=== PATIENT | female | born 1935 | race Caucasian/White ===

== ENCOUNTER 2016-11-30 18:16 | Emergency (ER) | payer OTHER ==
[~2016-11-30] VITALS: Ht 165.1 cm; Wt 90.7 kg
[2016-11-30 20:03] VITALS: BP 136/88; PULSE 64; RESP 17; TEMP 97.7; O2SAT 98
[2016-11-30] MEDS ORDERED: BIMA2.5D6 OP (20:09)
[2016-11-30] MEDS ORDERED: LIP10 PO (20:09)
--- NOTE | 2016-11-30 21:20 | NUR ---
Pt states that she woke up with her L foot being swollen since this morning. Reports tightness and numbness. Denies trauma to L foot. Will continue to monitor. No other injuries or complaints mentioned/noted. No distress noted.
--- NOTE | 2016-11-30 21:20 | NUR ---
Placed in room 08 . Placed on blade operator, blood pressure machine and pulse oximeter. To gown for exam. Side rails up. Report given to TYSON Jovel.
--- NOTE | 2016-11-30 21:20 | NUR ---
ER Dr. Miller at bedside examining patient.
[2016-11-30 21:49] LABS: BASOPHILS # (AUTO) 0.1 K/uL (0.0-0.2); BASOPHILS % (AUTO) 0.9 % (0.0-2.0); EOSINOPHILS # (AUTO) 0.4 K/uL (0.0-0.4); EOSINOPHILS % (AUTO) 4.6 % (0.0-4.0); HEMATOCRIT 40.7 % (36-48); HEMOGLOBIN 13.7 g/dL (12.0-16.0); LYMPHOCYTES # (AUTO) 2.2 K/uL (1.0-5.5); LYMPHOCYTES % (AUTO) 25.2 % (20.5-51.5); MEAN CORPUSCULAR HEMOGLOBIN 29 pg (27-31); MEAN CORPUSCULAR HGB CONC 34 % (32-36); MEAN CORPUSCULAR VOLUME 87 fL (79.0-98.0); MONOCYTES # (AUTO) 0.6 K/uL (0.0-1.0); MONOCYTES % (AUTO) 7.1 % (1.7-9.3); NEUTROPHILS # (AUTO) 5.4 K/uL (1.8-7.7); NEUTROPHILS % (AUTO) 62.2 % (40.0-70.0); PLATELET COUNT (AUTO) 196 K/uL (130-430); RED CELL DISTRIBUTION WIDTH 13.2 % (9.0-15.0); WHITE BLOOD COUNT (AUTO) 8.7 K/uL (4.8-10.8)
[2016-11-30 21:58] LABS: ANION GAP 4 (5-15); CALCIUM 8.7 mg/dL (8.4-11.0); CHLORIDE 106 mmol/L (98-107); CREATININE 0.84 mg/dL (0.55-1.30); GLUCOSE 101 mg/dL (70-99); POTASSIUM 3.7 mmol/L (3.5-5.1); SODIUM SERUM 139 mmol/L (136-145); UREA NITROGEN, BLOOD 14 mg/dL (8-21)
[2016-11-30 22:02] LABS: ALANINE AMINOTRANSFERASE 24 U/L (12-78); ALBUMIN 3.6 g/dL (3.4-4.8); ASPARTATE AMINOTRANSFERASE 14 U/L (10-37); TOTAL BILIRUBIN 0.6 mg/dL (0.0-1.0); TOTAL PROTEIN, SERUM 7.1 g/dL (6.4-8.3)
[2016-11-30 22:19] LABS: PROTHROMBIN TIME 10.6 SECS (9.5-12.5)
[2016-12-01 00:06] VITALS: BP 133/87; PULSE 62; RESP 17; TEMP 97.7; O2SAT 98
--- NOTE | 2016-12-01 00:06 | NUR ---
Patient given written and verbal discharge instructions and verbalizes understanding. ER MD discussed with patient the results and treatment provided. Patient in stable condition. ID arm band removed. Patient educated on pain management and to follow up with PMD. Pain Scale 0/10. Opportunity for questions provided and answered.
== END 2016-12-01 00:06 | disposition home or self-care (01) ==
LOC: SED 18:16
DX: M96.89 Other intraoperative and postprocedural complications and disorders of the musculoskeletal system (principal); M25.372 Other instability, left ankle; R60.9 Edema, unspecified; Z88.5 Allergy status to narcotic agent
CPT/HCPCS: 36415; 80053; 85025; 85610-TC; 85730-TC; 93971; 99285

== ENCOUNTER 2019-02-06 14:23 | Emergency (ER) | payer OTHER ==
[~2019-02-06] VITALS: Ht 165.1 cm; Wt 83.9 kg
[~2019-02-06 14:23] MED LIST: BIMA2.5D6 OP; LIP10 PO
[2019-02-06 14:30] VITALS: BP_SYST 138
[2019-02-06 14:59] LABS: BASOPHILS # (AUTO) 0.1 K/uL (0.0-0.2); BASOPHILS % (AUTO) 1.4 % (0.0-2.0); EOSINOPHILS # (AUTO) 0.2 K/uL (0.0-0.4); EOSINOPHILS % (AUTO) 3.3 % (0.0-4.0); HEMATOCRIT 43.4 % (36-48); HEMOGLOBIN 14.7 g/dL (12.0-16.0); LYMPHOCYTES # (AUTO) 2.1 K/uL (1.0-5.5); LYMPHOCYTES % (AUTO) 28.1 % (20.5-51.5); MEAN CORPUSCULAR HEMOGLOBIN 30 pg (27-31); MEAN CORPUSCULAR HGB CONC 34 % (32-36); MEAN CORPUSCULAR VOLUME 88 fL (79.0-98.0); MONOCYTES # (AUTO) 0.6 K/uL (0.0-1.0); MONOCYTES % (AUTO) 8.4 % (1.7-9.3); NEUTROPHILS # (AUTO) 4.4 K/uL (1.8-7.7); NEUTROPHILS % (AUTO) 58.8 % (40.0-70.0); PLATELET COUNT (AUTO) 224 K/uL (130-430); RED BLOOD CELL COUNT(AUTO) 4.94 MIL/uL (4.2-6.2); WHITE BLOOD COUNT (AUTO) 7.4 K/uL (4.8-10.8)
[2019-02-06] MEDS ORDERED: ASPIRIN 81 MG TAB.CHEW PO ONE (15:00)
[2019-02-06] MEDS ORDERED: ENOXAPARIN SODIUM 80 MG/0.8 ML SYRINGE SUBCUT ONE (15:00)
[2019-02-06] MEDS ORDERED: RED600TA PO (15:12)
[2019-02-06] MEDS ORDERED: ACET-2634 PO (15:12)
[2019-02-06] MEDS ORDERED: CALC-823 PO (15:12)
[2019-02-06] MEDS ORDERED: LIP10 PO (15:12)
[2019-02-06] MEDS ORDERED: GABA-529 PO (15:12)
[2019-02-06] MEDS ORDERED: TURM1CAP2 PO (15:12)
[2019-02-06] MEDS ORDERED: CHLO473M5 MM (15:12)
[2019-02-06] MEDS ORDERED: UBID1CAP54 PO (15:12)
[2019-02-06] MEDS ORDERED: ANTI1CAP2 PO (15:12)
[2019-02-06] MEDS ORDERED: HYDR12.55 PO (15:12)
[2019-02-06] MEDS ORDERED: BIMA2.5D5 OP (15:12)
[2019-02-06 15:34] LABS: ANION GAP 8 (5-15); CALCIUM 9.1 mg/dL (8.4-11.0); CHLORIDE 103 mmol/L (98-107); CREATININE 0.95 mg/dL (0.55-1.30); GLUCOSE 121 mg/dL (70-99); POTASSIUM 3.4 mmol/L (3.5-5.1); SODIUM SERUM 136 mmol/L (136-145); UREA NITROGEN, BLOOD 16 mg/dL (8-21)
[2019-02-06 15:42] LABS: PROTHROMBIN TIME 9.8 SECS (9.5-12.5)
[2019-02-06 16:37] VITALS: BP_SYST 138
== END 2019-02-06 16:36 | disposition home or self-care (01) ==
LOC: SED 14:23
DX: I82.4Z1 Acute embolism and thrombosis of unspecified deep veins of right distal lower extremity (principal); E78.00 Pure hypercholesterolemia, unspecified; M19.90 Unspecified osteoarthritis, unspecified site; I10 Essential (primary) hypertension; Z88.5 Allergy status to narcotic agent; Z88.6 Allergy status to analgesic agent; Z79.899 Other long term (current) drug therapy
CPT/HCPCS: 36415; 71045; 80048; 84484; 85025; 85610; 85730; 93005; 96372; 99284; J1650